=== PATIENT | female | born 1955 | race Caucasian/White ===

== ENCOUNTER → 2018-11-06 | Day surgery (SDC) | payer OTHER ==
[~2018-11-06] VITALS: Ht 162.6 cm; Wt 46.7 kg
[~2018-11-06] MED LIST: AMIODARONE HCL200 MG PO; AMLODIPINE BESYL5 MG PO; GABAPENTIN300 MG PO; LIDOCAINE 1% W/EPINEPHRINE 20 ML VIAL ONE; LIDOCAINE HCL 2% LOCAL 20 ML VIAL ONE; NORCO 10-325 T1 EACH PO; XARELTO20 MG PO
[2018-11-06 10:15] VITALS: BP 133/65
--- NOTE | 2018-11-06 10:15 | NUR ---
Patient present for loop recorder implant. Patient gowned. Vital signs stable. Patient a&o x 3.
[2018-11-06 11:05] VITALS: BP 129/65
--- NOTE | 2018-11-06 11:05 | NUR ---
Procedure complete. Discharge instructions given. Patient verbalized understanding. Patient discharged home via to front lobby with driving patient home.
--- NOTE | 2018-11-06 14:12 | Operative Report ---
DATE OF PROCEDURE: November 06, 2018 INDICATION FOR THE PROCEDURE: Atrial fibrillation. PREPROCEDURE ASSESSMENT: The risks, the benefits and alternatives to the procedure were explained to the patient prior to the procedure, and informed consent was obtained. MEDICATIONS: Please see nursing logs for medications administered during the procedure. PROCEDURE PERFORMED: Implantable loop recorder placement ([employer] LINQ). PROCEDURE DETAILS: Patient was prepped and draped in a sterile fashion. One percent lidocaine with epinephrine was used to infiltrate superficially and deep, and 20 mL were administered to achieve adequate local anesthesia. A small quarter-inch skin incision was made using the provided tool. The loop recorder was inserted into the 4th intercostal space. The incision was approximated and closed with Dermabond, and a dressing was applied. Procedure ended without any complications. Adequate signal and waveform acquisition were confirmed after the procedure. ESTIMATED BLOOD LOSS: 1 mL. IMPLANT: [employer] LINQ implantable loop recorder. COMPLICATIONS: None. CONCLUSION 1. Successful implantation of [employer] LINQ. 2. Followup in clinic 1 week post procedure for removal of dressing and wound check. Job#: [id number]
== END | disposition home or self-care (01) ==
LOC: CATH LAB 09:34
PROVIDERS: ATTEND Internal Medicine
DX: I48.91 Unspecified atrial fibrillation (principal); R07.9 Chest pain, unspecified; I10 Essential (primary) hypertension; J44.9 Chronic obstructive pulmonary disease, unspecified; Z79.02 Long term (current) use of antithrombotics/antiplatelets
CPT/HCPCS: 33282; C1764; J2001